=== PATIENT | male | born 2000 | race American Indian/Alaskan Native ===

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

== ENCOUNTER 2018-07-03 13:20 | Emergency (ER) | payer SELFPAY ==
[2018-07-03 13:29] VITALS: BP 142/77
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
== END 2018-07-03 13:56 | disposition home or self-care (01) ==
LOC: DL.ED 13:20
DX: S01.511A Laceration without foreign body of lip, initial encounter (principal); F17.210 Nicotine dependence, cigarettes, uncomplicated; W21.05XA Struck by basketball, initial encounter
CPT/HCPCS: 99282; 99283

== ENCOUNTER 2024-02-14 00:59 | Emergency (ER) | payer SELFPAY ==
[2024-02-14 01:07] VITALS: BP 123/78; PULSE 71
== END 2024-02-14 01:09 ==
LOC: DL.ED 00:59
DX: Z02.89 Encounter for other administrative examinations (principal)
CPT/HCPCS: 99283